=== PATIENT | female | born 1975 | race Caucasian/White ===

== ENCOUNTER 2025-06-04 18:06 | Emergency (ER) | payer BC, SELFPAY ==
[2025-06-04 18:17] VITALS: BP 128/87
[2025-06-04 18:39] LABS: Hematocrit 41.4 % (37.0-47.0); Hemoglobin 13.9 g/dL (12.0-16.0); Mean Corp Hgb Conc. 33.6 g/dL (33.0-37.0); Mean Corpuscular Volume 90.0 fL (81.0-99.0); Nucleated Red Blood Cells % 0 %; Platelet Count 329 10^3/uL (130-400); Red Cell Dist. Width 12.3 % (11.5-14.5); Urine Character Clear (Clear)
[2025-06-04 18:45] LABS: Urine Squamous Cell 21-25 /LPF (Few)
[2025-06-04 18:46] LABS: Urine Red Blood Cell 0-2 /HPF (0-2)
[2025-06-04 19:01] LABS: ALT (SGPT) 15 U/L (0-35); AST (SGOT) 26 U/L (14-36); Albumin 4.4 g/dl (3.5-5.0); Alkaline Phosphatase 50 U/L (38-126); Blood Urea Nitrogen 14 mg/dl (7-17); Calcium 9.7 mg/dl (8.4-10.2); Carbon Dioxide 29 mmol/L (22-30); Chloride 102 mmol/L (98-107); Glucose 104 mg/dl (70-99); Lipase 156 U/L (23-300); Potassium 3.7 mmol/L (3.5-5.1); Sodium 136 mmol/L (135-145); Total Protein 8.3 g/dl (6.3-8.2); eGFR > 60.00
--- NOTE | 2025-06-05 00:37 | ED.GENMED ---
History of Present Illness
General
Chief Complaint: Abdominal Symptoms
Source: patient
Exam Limitations: none
Time Seen by Provider: 06/05/25 00:34
Nursing documentation reviewed up to this point in time: agreed with
History of Present Illness
History of Present Illness:
This is a 49-year-old female with no past medical history who presents to the ER today with concerns of abdominal pain intermittently for the past few weeks. Patient reports that during this time, she has had intermittent epigastric pain at times
exacerbated by eating. Patient also notes a decreased appetite. She also notes nausea but she has not had any vomiting. No fevers or chills. At times her stools looser but she denies diarrhea. Denies constipation. She got COVID around
Thanksgiving time and her symptoms were attributed to COVID. She started to feel better but then her symptoms returned. She denies any rectal bleeding or dark tarry stools. Aside from C-sections, she denies any history of intra-abdominal surgery.
She has never anything like this before. The pain does not radiate to the back. She saw her primary care prior first issue who ordered outpatient ultrasound and was concerned about possible gallbladder etiology. Patient decided to present to the
ER today because she felt like this past week, her symptoms got worse. She does have a follow-up with gastroenterology scheduled in the first week of June. At this time, patient is pain-free.
Review of Systems
Review of Systems
All Other Systems: ROS reviewed and negative except as documented in HPI and ROS
Phy Exam
Physical Exam
Physical Exam:
General: Patient is well appearing and in no acute distress; non-toxic
Skin: Warm and dry, no rashes or lesions
Head: Normocephalic, atraumatic
Eyes: Sclera non-icteric. EOMs intact.
Cardiac: Regular rate and rhythm, no murmurs
Peripheral Vascular: No lower extremity swelling or edema
Pulm: Normal respiratory effort, no wheezes, rales, rhonchi
Abdomen: No abdominal tenderness to palpation, no palpable abdominal mass
Neuro: CN II-XII intact, no focal neurologic deficits.
Psychiatric: Appropriate mood and affect.
Course
Orders/Labs/Results
Orders:
Orders
06/04/25 18:28
Complete Blood Count/With Diff Urgent
Comprehensive Metabolic Panel Urgent
Lipase Urgent
Urine Microscopic Reflex Cult Urgent
Urine Reflex Culture from [facility] [Urinalysis Reflex To Culture] Urgent
Date Specimen was Collected: 06/04/25
Time Specimen was Collected: 18:22
Urine Culture Urgent
NICO Source: U
Specimen Description:
Date Specimen was Collected: 06/04/25
Time Specimen was Collected: 18:22
06/05/25 00:00
US Abdomen Complete/Upper Urgent
Reason For Exam: ruq abd pain
06/05/25 01:04
Electrocardiogram (*1) Urgent
Reason for Study: Abdominal Pain
Abnormal Lab Results
06/04/25
18:28
Absolute Monos (auto) 0.9 H 10^3/uL
(0.1-0.6)
Monocytes % 9.7 H %
(1.7-9.3)
Glucose 104 H mg/dl
(70-99)
Total Protein 8.3 H g/dl
(6.3-8.2)
Leukocyte Esterase Rfl 1+ A
(Negative)
Urine Bacteria (Reflex) Many A
(Negative)
06/04/25 18:28
06/04/25 18:28
Vital Signs
Initial and Last Documented VS:
Initial Vital Signs
Temp Pulse Resp BP Pulse Ox
98.7 F 73 20 128/87 100
06/04/25 18:17 06/04/25 18:17 06/04/25 18:17 06/04/25 18:17 06/04/25 18:17
Last Documented Vital Signs
Temp Pulse Resp BP Pulse Ox
98.7 F 64 18 105/64 98
06/04/25 18:17 06/05/25 01:56 06/05/25 01:56 06/05/25 01:56 06/05/25 01:56
MDM/Problems Addressed
Differential Diagnosis Includes:
Differentials include biliary colic, cholecystitis, pancreatitis, gastritis, GERD, ACS
MDM/Problems Addressed:
49-year-old female presents to the day to the ER with concerns of intermittent abdominal pain and nausea. She also notes decreased appetite. Her primary care provider is concerned about biliary etiology and recommended ultrasound.
Labs reviewed, no leukocytosis noted which is reassuring. Patient has normal kidney function, normal liver function. Normal lipase. Urinalysis no signs concerning for infection. On exam, she is very well-appearing in no acute distress she has
absolutely no abdominal tenderness to palpation. Her ultrasound shows no acute findings and no signs of cholelithiasis or cholecystitis. Her pancreas and liver appeared normal limits. Her bilateral kidneys appear normal and her spleen is of
normal size. Unclear unclear etiology of patient's pain at this time, could be GERD as her symptoms seem to get better with Pepcid. Since patient feels well at this time and she is pain-free, I will defer trial of PPI to her primary care provider.
Patient does have a follow-up with GI in June. I advised patient to return for any worsening symptoms or fevers, rectal bleeding, etc. Patient understanding. Patient stable for discharge
Chronic conditions affecting care:
n/a
*Pulse Oximetry
SaO2: 100
Oxygen Mode of Delivery: Room air
Patient hypoxic: no
*Critical Care Note
Total Time (30-74mins, 75-104mins- exclusive of procedures): Not Applicable
Data Reviewed
Review of Other/Old Records Reveals: Records (Reviewed operative report from 09/26/2013 patient seen for ethmoidectomy following chronic sinusitis) and Discharge Summary (no discharge summary for review )
Patient Management
Escalation/DeEscalation of care consider admission/obs:
admission not indicated
ED Attending Note
-
Portions of this chart may have been created with voice recognition software.� Occasional wrong word or��sound alike� substitutions may have occurred due to the inherent limitations of voice recognition software.
Discharge Plan
Departure
Patient Disposition: Home (Routine Discharge)
Date of Disposition: 06/05/25
Time of Disposition: 03:31
Patient with high blood pressure during this ER visit?: No
Condition: Good
Discharge Problem:
Intermittent upper abdominal pain
Instructions: Abdominal Pain
Activity Restrictions/Additional Instructions:
As discussed, please follow-up with your scheduled appointment with gastroenterology.
PLEASE RETURN TO DEVELOP CHEST PAIN, SHORTNESS OF BREATH, RECTAL BLEEDING, DARK TARRY STOOLS, FEVERS OR CHILLS, INTRACTABLE NAUSEA OR VOMITING, OR ANY OTHER SIGNS OR SYMPTOMS RECENTLY.
Interventions
Interventions:
*General Assessment Last Done: 06/04/25 18:17
*Neglect/Abuse Screening Last Done: 06/04/25 18:17
*ED COVID-19 Vaccine History Last Done: 06/04/25 18:17
*ED Influenza Vaccine History Last Done: 06/04/25 18:17
[facility] Fall Risk Assessment Tool Last Done: 06/05/25 00:16
*Risk Screen - Suicide (C-SSRS) Last Done: 06/04/25 18:17
*Nursing Disposition Last Done: 06/05/25 03:38
VU-Sdzngh-Ogjzvtujot Assessment Last Done: 06/05/25 01:57
Discharge Date and Time
Discharge Date/Time: 06/05/25 03:52
Print Language: [id number]
[2025-06-05 01:56] VITALS: BP 105/64
== END 2025-06-05 03:52 | disposition home or self-care (01) ==
LOC: EMR 18:06
PROVIDERS: Emergency Medicine; EMERGENCY PHYSICIAN Student in an Organized Health Care Education/Training Program; FAMILY PHYSICIAN Family Medicine
DX: R10.11 Right upper quadrant pain (principal); Z86.16 Personal history of COVID-19
CPT/HCPCS: 99284; 76700; 80053; 81003; 81015; 83690; 85025; 87086; 93005